=== PATIENT | female | born 1990 | race Caucasian/White ===

== ENCOUNTER 2019-05-17 01:23 | Emergency (ER) | payer SELFPAY ==
--- NOTE | 2019-05-17 03:20 | ER Document Report ---
ED Medical Screen (RME) - General Chief Complaint: Chest Pain Stated Complaint: TROUBLE BREATHING Time Seen by Provider: 05/17/19 03:18 Notes: 29-year-old female with chief complaint of an episode that happened a few hours ago where she felt tightening in her chest, difficulty breathing, palpitations, and lightheadedness like she was going to pass out. She states that she started feeling improved, took some Dramamine, now she just feels slightly "off". She denies current pain or difficulty breathing. She denies smoking, alcohol, recreational drugs, or daily medications. She does report history of anemia requiring transfusions. TRAVEL OUTSIDE OF THE [place] IN LAST 30 DAYS: No - Related Data Allergies/Adverse Reactions: No Known Allergies Allergy (Unverified 05/17/19 01:26) Physical Exam - General General appearance: Appears well In distress: None - Cardiovascular Rhythm: Regular. No: Tachycardia Heart sounds: Normal auscultation, S1 appreciated, S2 appreciated Course - Re-evaluation Re-evalutation: I have greeted and performed a rapid initial assessment of this patient. A comprehensive ED assessment and evaluation of the patient, analysis of test results and completion of the medical decision making process will be conducted by additional ED providers.
[2019-05-17 03:46] LABS: ABSOLUTE EOSINOPHILS # (AUTO) 0.1 10^3/uL (0.0-0.6); ABSOLUTE LYMPHOCYTES (AUTO) 2.8 10^3/uL (0.5-4.7); ABSOLUTE MONOCYTES (AUTO) 0.7 10^3/uL (0.1-1.4); ABSOLUTE NEUT (AUTO) 3.5 10^3/uL (1.7-8.2); BASOPHILS % (AUTO) 0.1 % (0-2); EOSINOPHILS % (AUTO) 1.4 % (0-6); HEMATOCRIT 35.1 % (36.0-47.0); HEMOGLOBIN 11.8 g/dL (12.0-15.5); LYMPHOCYTES % (AUTO) 38.8 % (13-45); MEAN CORPUSCULAR HEMOGLOBIN 29.6 pg (27.0-33.4); MEAN CORPUSCULAR HGB CONC 33.6 g/dL (32.0-36.0); MEAN CORPUSCULAR VOLUME 88 fl (80-97); MONOCYTES % (AUTO) 10.4 % (3-13); PLATELET COUNT 168 10^3/uL (150-450); RED BLOOD COUNT 3.99 10^6/uL (3.72-5.28); RED CELL DISTRIBUTION WIDTH 13.5 % (11.5-14.0); SEGMENTED NEUTROPHILS % (AUTO) 49.3 % (42-78); TOTAL CELLS COUNTED % (AUTO) 100 %; WHITE BLOOD COUNT 7.1 10^3/uL (4.0-10.5)
[2019-05-17 04:16] LABS: ALANINE AMINOTRANSFERASE 29 U/L (9-52); ALBUMIN 4.5 g/dL (3.5-5.0); ALKALINE PHOSPHATASE 54 U/L (38-126); ANION GAP 7 (5-19); ASPARTATE AMINO TRANSFERASE 56 U/L (14-36); BILIRUBIN,DIRECT 0.2 mg/dL (0.0-0.4); BILIRUBIN,TOTAL 0.2 mg/dL (0.2-1.3); BLOOD UREA NITROGEN 15 mg/dL (7-20); CALCIUM 9.6 mg/dL (8.4-10.2); CARBON DIOXIDE 29 mmol/L (22-30); CHLORIDE 104 mmol/L (98-107); GLUCOSE 95 mg/dL (75-110); SODIUM 140.3 mmol/L (137-145); TOTAL PROTEIN 7.2 g/dL (6.3-8.2)
--- NOTE | 2019-05-17 04:24 | RADIOLOGY REPORT (SQ) ---
Chest single view on 05/17/2019 at 3:57 AM CLINICAL INDICATION: Chest pain COMPARISON: None FINDINGS: The lungs are clear. Portion of a necklace is noted overlying the midline neck that is likely outside the patient. Cardiac, hilar and mediastinal contours are within normal limits. Pulmonary vascularity is within normal limits. No bony abnormality is noted. IMPRESSION: No active disease.
[2019-05-17 04:33] LABS: FREE T4 (FREE THYROXINE) 0.82 ng/dL (0.78-2.19)
[2019-05-17 04:47] LABS: THYROID STIMULATING HORMONE 2.91 uIU/mL (0.47-4.68)
--- NOTE | 2019-05-19 00:24 | EKG REPORT ---
SEVERITY:- NORMAL ECG - SINUS RHYTHM : Confirmed by: Tasha Holland 19-May-2019 00:24:02
== END 2019-05-17 05:45 | disposition left against medical advice (07) ==
LOC: ER 01:23
DX: R07.9 Chest pain, unspecified (principal); R06.00 Dyspnea, unspecified; R00.2 Palpitations; R42 Dizziness and giddiness; D64.9 Anemia, unspecified
CPT/HCPCS: 36415; 71045; 80053; 84439; 84443; 84484; 84703; 85025; 93005; 93010

== ENCOUNTER 2019-07-12 08:01 | Emergency (ER) | payer SELFPAY ==
[2019-07-12] MEDS ORDERED: ONDANSETRON 4 MG TAB.RAPDIS PO ONE (08:27)
[2019-07-12] MEDS ORDERED: MAG HYDROX/AL HYDROX/SIMETH SUSP 30 ML UDCUP PO ONE (08:33)
[2019-07-12] MEDS ORDERED: METOCLOPRAMIDE HCL ORAL SOLN 10 MG/10 ML UDCUP PO ONE (08:33)
[2019-07-12] MEDS ORDERED: LIDOCAINE 2% VISCOUS SOLN 20 ML UDCUP PO ONE (08:33)
--- NOTE | 2019-07-12 08:35 | ER Document Report ---
ED General - General Chief Complaint: Nausea/Vomiting/Diarrhea Stated Complaint: ABDOMINAL PAIN,DIARRHEA Time Seen by Provider: 07/12/19 08:26 TRAVEL OUTSIDE OF THE [place] IN LAST 30 DAYS: No - HPI Notes: Presents with 2 days of intermittent nausea vomiting diarrhea and epigastric discomfort after eating at [employer]. Patient says her gallbladder. She states she is a little over the last 2 days results this. No recent travel out of the country no camping. No known medical problems does not take any medications on a daily basis - Related Data Allergies/Adverse Reactions: No Known Allergies Allergy (Verified 07/12/19 08:02) Past Medical History - Social History Smoking Status: Unknown if Ever Smoked Family History: Reviewed & Not Pertinent Renal/ Medical History: Denies: Hx Peritoneal Dialysis Review of Systems - Review of Systems Constitutional: No symptoms reported EENT: No symptoms reported Cardiovascular: No symptoms reported Respiratory: No symptoms reported Gastrointestinal: See HPI Genitourinary: No symptoms reported Female Genitourinary: No symptoms reported Musculoskeletal: No symptoms reported Skin: No symptoms reported Hematologic/Lymphatic: No symptoms reported Neurological/Psychological: No symptoms reported Physical Exam - Vital signs Vitals: Temp Pulse Resp BP Pulse Ox 98.2 F 81 16 121/64 97 07/12/19 08:05 07/12/19 08:05 07/12/19 08:05 07/12/19 08:05 07/12/19 08:05 - General General appearance: Appears well, Alert - HEENT Head: Normocephalic, Atraumatic - Respiratory Respiratory status: No respiratory distress Chest status: Nontender Breath sounds: Normal - Cardiovascular Rhythm: Regular, Other - Abdominal Inspection: Normal Distension: No distension Bowel sounds: Normal Tenderness: Other - Mild tenderness palpation in epigastric and right upper quadrant - Back Back: Normal - Neurological Neuro grossly intact: Yes Course - Re-evaluation Re-evalutation: 07/12/19 10:29 No concerning findings on gallbladder ultrasound labs within normal limits are nonsignificant. Patient will be discharged at this time with antinausea medications. Return precautions provided - Vital Signs Vital signs: Temp Pulse Resp BP Pulse Ox 97.9 F 81 16 117/66 96 07/12/19 11:19 07/12/19 11:19 07/12/19 11:19 07/12/19 11:19 08/23/19 11:19 - Laboratory Result Diagrams: 07/12/19 08:46 07/12/19 08:46 Laboratory results interpreted by me: 07/12/19 07/12/19 07/12/19 08:34 08:46 08:46 Hgb 11.0 L Hct 33.3 L RDW 14.4 H Glenn % (Auto) 13.1 H Total Bilirubin 0.1 L Ur Leukocyte Esterase SMALL H Discharge - Discharge Clinical Impression: Nausea vomiting and diarrhea, Epigastric discomfort Condition: Good Disposition: HOME, SELF-CARE Instructions: Antinausea Medication ([facility]), Diarrhea, Nonspecific ([facility]), Vomiting ([facility]) Prescriptions: Ondansetron [Zofran Odt 4 mg Tablet] 1 tab PO Q4H PRN #15 tab.rapdis PRN Reason: For Nausea/Vomiting
[2019-07-12 08:55] LABS: ABSOLUTE EOSINOPHILS # (AUTO) 0.1 10^3/uL (0.0-0.6); ABSOLUTE LYMPHOCYTES (AUTO) 1.8 10^3/uL (0.5-4.7); ABSOLUTE MONOCYTES (AUTO) 0.9 10^3/uL (0.1-1.4); BASOPHILS % (AUTO) 0.2 % (0-2); EOSINOPHILS % (AUTO) 1.5 % (0-6); HEMATOCRIT 33.3 % (36.0-47.0); LYMPHOCYTES % (AUTO) 26.3 % (13-45); MEAN CORPUSCULAR HEMOGLOBIN 29.2 pg (27.0-33.4); MEAN CORPUSCULAR HGB CONC 33.2 g/dL (32.0-36.0); MEAN CORPUSCULAR VOLUME 88 fl (80-97); MONOCYTES % (AUTO) 13.1 % (3-13); PLATELET COUNT 170 10^3/uL (150-450); RED BLOOD COUNT 3.77 10^6/uL (3.72-5.28); RED CELL DISTRIBUTION WIDTH 14.4 % (11.5-14.0); SEGMENTED NEUTROPHILS % (AUTO) 58.9 % (42-78); TOTAL CELLS COUNTED % (AUTO) 100 %; WHITE BLOOD COUNT 6.8 10^3/uL (4.0-10.5)
[2019-07-12 09:03] LABS: APPEARANCE,URINE CLEAR; BILIRUBIN,URINE NEGATIVE (NEGATIVE); COLOR,URINE YELLOW; GLUCOSE, URINE NEGATIVE (NEGATIVE); KETONES,URINE NEGATIVE (NEGATIVE); LEUKOCYTE ESTERASE,URINE SMALL (NEGATIVE); NITRITE,URINE NEGATIVE (NEGATIVE); PROTEIN,URINE NEGATIVE (NEGATIVE); URINE SPECIFIC GRAVITY 1.016; UROBILINOGEN,URINE NEGATIVE mg/dL (<2.0)
[2019-07-12 09:12] LABS: ALBUMIN 4.3 g/dL (3.5-5.0); ALKALINE PHOSPHATASE 60 U/L (38-126); ANION GAP 11 (5-19); ASPARTATE AMINO TRANSFERASE 25 U/L (14-36); BILIRUBIN,DIRECT 0.1 mg/dL (0.0-0.4); BILIRUBIN,TOTAL 0.1 mg/dL (0.2-1.3); BLOOD UREA NITROGEN 11 mg/dL (7-20); CALCIUM 9.4 mg/dL (8.4-10.2); CARBON DIOXIDE 26 mmol/L (22-30); CHLORIDE 102 mmol/L (98-107); GLUCOSE 86 mg/dL (75-110); TOTAL PROTEIN 6.8 g/dL (6.3-8.2)
--- NOTE | 2019-07-12 09:39 | RADIOLOGY REPORT (SQ) ---
EXAM DESCRIPTION: U/S ABDOMEN LIMITED W/O DOP COMPLETED DATE/TIME: 07/12/2019 9:28 am REASON FOR STUDY: epigastric pain COMPARISON: None. TECHNIQUE: Dynamic and static grayscale images acquired of the abdomen and recorded on PACS. Additio nal selected color Doppler and spectral images recorded. LIMITATIONS: None. FINDINGS: PANCREAS: Visualized portions the pancreas are normal in appearance. LIVER: Normal size Echo texture normal. No focal masses. LIVER VASCULATURE: Normal directional flow of the main portal vein and hepatic veins. GALLBLADDER: Gallbladder is contracted. No stones. No wall thickening. ULTRASOUND-DETECTED MUHAMMAD'S SIGN: Positive. INTRAHEPATIC DUCTS AND COMMON DUCT: CBD and intrahepatic ducts normal caliber. No filling defects. INFERIOR VENA CAVA: Normal flow. AORTA: No aneurysm. RIGHT KIDNEY: Normal size. Normal echogenicity. No solid or suspicious masses. No hydronephros is. No calcifications. PERITONEAL AND RIGHT PLEURAL SPACE: No ascites or effusions. OTHER: No other significant findings. IMPRESSION: Positive sonographic Muhammad's sign otherwise negative examination. TECHNICAL DOCUMENTATION: JOB ID: [id number]- All Rights Reserved Reading location - IP/workstation name: [email or web address]
[2019-07-12] MEDS ORDERED: DICYCLOMINE HCL 20 MG TABLET PO ONE (09:52)
[2019-07-12 11:20] VITALS: BP 117/66
== END 2019-07-12 11:20 | disposition home or self-care (01) ==
LOC: ER 08:01
DX: R11.2 Nausea with vomiting, unspecified (principal); R19.7 Diarrhea, unspecified; R10.13 Epigastric pain
CPT/HCPCS: 99284; 36415; 83690; 83735; 85025; 81025; 80053; 81001; 76705; J3490 ×2

== ENCOUNTER 2019-10-29 23:14 | Emergency (ER) | payer SELFPAY ==
[2019-10-29] MEDS ORDERED: ONDANSETRON 4 MG TAB.RAPDIS PO ONE (23:29)
[2019-10-29] MEDS ORDERED: IBUPROFEN 800 MG TABLET PO ONE (23:29)
--- NOTE | 2019-10-29 23:31 | ER Document Report ---
ED Medical Screen (RME) - General Chief Complaint: Knee Pain Stated Complaint: FALL KNEE PAIN Time Seen by Provider: 10/29/19 23:27 Mode of Arrival: Ambulatory Information source: Patient Notes: 29-year-old female presents emergency department with complaints of left knee pain. Reports she twisted her knee this morning felt a pop. She has been able to ambulate but reports pain and has been vomiting from the pain. Patient reports she did take 400 mg of Motrin without relief of pain. I have greeted and performed a rapid initial assessment of this patient. A comprehensive ED assessment and evaluation of the patient, analysis of test results and completion of the medical decision making process will be conducted by additional ED providers. Dictation of this chart was performed using voice recognition software; therefore, there may be some unintended grammatical errors. TRAVEL OUTSIDE OF THE [place] IN LAST 30 DAYS: No - Related Data Allergies/Adverse Reactions: No Known Allergies Allergy (Verified 07/12/19 08:02) Past Medical History Renal/ Medical History: Denies: Hx Peritoneal Dialysis Physical Exam - Vital signs Vitals: Temp Pulse Resp BP Pulse Ox 99.2 F 105 H 16 132/82 H 100 10/29/19 23:27 10/29/19 23:27 10/29/19 23:27 10/29/19 23:27 10/29/19 23:27 Course - Vital Signs Vital signs: Temp Pulse Resp BP Pulse Ox 99.2 F 105 H 16 132/82 H 100 10/29/19 23:27 10/29/19 23:27 10/29/19 23:27 10/29/19 23:27 10/29/19 23:27
--- NOTE | 2019-10-30 00:21 | RADIOLOGY REPORT (SQ) ---
EXAM DESCRIPTION: Left knee RadLex: XR KNEE 4 OR MORE VIEWS Views: 4 CLINICAL HISTORY: 29 years Female, pain, twisted knee felt pop COMPARISON: None. FINDINGS: Negative for acute fracture, dislocation, or radiopaque foreign body. No joint effusion. No focal cortical defects. IMPRESSION: 1. No acute findings.
[2019-10-30 01:45] VITALS: BP 111/65
[2019-10-30] MEDS ORDERED: OXYCODONE-ACETAMINOPHEN 5-325 MG TABLET PO ONE (03:06)
[2019-10-30] MEDS ORDERED: ONDANSETRON 4 MG TAB.RAPDIS PO ONE (03:06)
--- NOTE | 2019-10-30 03:06 | ER Document Report ---
HPI - HPI Time Seen by Provider: 10/29/19 23:27 Pain Level: 5 Context: Patient is a 29-year-old female that comes to the emergency department for chief complaint of left knee pain. She states this morning she was moving furniture, twisted to the side, lost her balance, felt a pop in her knee. She states now it pops frequently and hurts to walk on. She denies swelling, she denies hip, ankle, or back pain. She denies any other injuries. She denies any daily medi cations. LMP within the past month. - REPRODUCTIVE Reproductive: DENIES: : Past Medical History - General Information source: Patient - Social History Smoking Status: Never Smoker Frequency of alcohol use: None Drug Abuse: None Lives with: Family Family History: Reviewed & Not Pertinent Patient has suicidal ideation: No Patient has homicidal ideation: No Renal/ Medical History: Denies: Hx Peritoneal Dialysis Surgical Hx: Negative - Immunizations Immunizations up to date: Yes Hx Diphtheria, Pertussis, Tetanus Vaccination: Yes Vertical Provider Document - CONSTITUTIONAL General Appearance: WD/WN, No Apparent Distress - INFECTION CONTROL TRAVEL OUTSIDE OF THE [place] IN LAST 30 DAYS: No - HEENT HEENT: Atraumatic, Normocephalic - NECK Neck: Normal Inspection - RESPIRATORY Respiratory: Breath Sounds Normal, No Respiratory Distress - CARDIOVASCULAR Cardiovascular: Regular Rate, Regular Rhythm - GI/ABDOMEN Gastrointestinal: Abdomen Soft, Abdomen Non-Tender - BACK Back: Normal Inspection - MUSCULOSKELETAL/EXTREMETIES Musculoskeletal/Extremeties: MAEW, FROM, Tender - There is some mild tenderness over the left medial anterior knee, no noted soft tissue swelling, pain with range of motion of the knee but range of motion is present. She can ambulate on the knee but she complains of doing so. Normal distal neurovascular exam, normal hip exam. Positive Romie's test with some popping - NEURO Level of Consciousness: Awake, Alert, Appropriate Motor/Sensory: No Motor Deficit, No Sensory Deficit - DERM Integumentary: Warm, Dry, No Rash Course - Re-evaluation Re-evalutation: X-ray negative, exam consistent with meniscus injury, no concerning findings or compartment syndrome. Placed in knee immobilizer, discussed expectations, follow-up, return precautions. Patient states understanding and agreement - Vital Signs Vital signs: Temp Pulse Resp BP Pulse Ox 98.1 F 86 16 111/65 100 10/30/19 01:45 10/30/19 01:45 10/30/19 01:45 10/30/19 01:45 10/30/19 01:45 Procedures - Immobilization Left knee Pre-Proc Neuro Vasc Exam: Normal Immobilizer type: Knee immobilizer Performed by: RN Post-Proc Neuro Vasc Exam: Normal Alignment checked and good: Yes Discharge - Discharge Clinical Impression: Left knee pain Qualifiers: Chronicity: acute Qualified Code(s): M25.562 - Pain in left knee Condition: Stable Disposition: HOME, SELF-CARE Additional Instructions: Your x-ray is negative for fracture or concerning finding, your examination is very consistent with a torn meniscus. Recommendation is to wear the knee immobilizer, use the crutches, elevate, ice 3-4 times a day, take the anti- inflammatory. Symptoms should gradually improve over the next several days. If symptoms resolve resume normal activity. If symptoms continue follow-up with orthopedics for additional management. Return for any concerning symptoms including severe swelling or pain. Prescriptions: Naproxen 500 mg PO BID PRN #14 tablet PRN Reason: Referrals: MARGIE BUCKNER MD [ACTIVE STAFF] - Follow up as needed
== END 2019-10-30 01:45 | disposition home or self-care (01) ==
LOC: ER 23:14
DX: M25.562 Pain in left knee (principal)
CPT/HCPCS: 99283; 73564; L1830; S0119 ×2

== ENCOUNTER 2019-11-08 22:47 | Emergency (ER) | payer SELFPAY ==
--- NOTE | 2019-11-08 23:18 | ER Document Report ---
ED Medical Screen (RME) - General Chief Complaint: Vaginal Bleeding Stated Complaint: AND BLEEDING Time Seen by Provider: 11/08/19 23:10 TRAVEL OUTSIDE OF THE [place] IN LAST 30 DAYS: No - HPI Notes: 11/08/19 23:16 29-year-old female to the emergency department with complaints of vaginal bleeding that began this morning and is gotten significantly worse this afternoon. She states that she is a G4, P3. She states that she is about 6 weeks . She has had confirmed with urinalysis but she has not yet had an ultrasound. She denies any fevers or chills. She denies any nausea or vomiting. She denies any passing out chest pain or shortness of breath. I performed a brief medical screening exam on the patient and determined she will need further evaluation by main side provider. I have placed initial orders to help expedite in her care this evening. - Related Data Allergies/Adverse Reactions: No Known Allergies Allergy (Verified 07/12/19 08:02) Past Medical History Renal/ Medical History: Denies: Hx Peritoneal Dialysis - Immunizations Immunizations up to date: Yes Hx Diphtheria, Pertussis, Tetanus Vaccination: Yes Physical Exam - Vital signs Vitals: Temp Pulse Resp BP Pulse Ox 97.5 F 102 H 16 133/73 H 98 11/08/19 22:58 11/08/19 22:58 11/08/19 22:58 11/08/19 22:58 11/08/19 22:58 Course - Vital Signs Vital signs: Temp Pulse Resp BP Pulse Ox 97.5 F 102 H 16 133/73 H 98 11/08/19 23:09 11/08/19 23:09 11/08/19 23:09 11/08/19 23:09 11/08/19 23:09
[2019-11-08 23:55] LABS: ABSOLUTE EOSINOPHILS # (AUTO) 0.1 10^3/uL (0.0-0.6); ABSOLUTE LYMPHOCYTES (AUTO) 2.4 10^3/uL (0.5-4.7); ABSOLUTE MONOCYTES (AUTO) 0.7 10^3/uL (0.1-1.4); ABSOLUTE NEUT (AUTO) 5.9 10^3/uL (1.7-8.2); BASOPHILS % (AUTO) 0.2 % (0-2); EOSINOPHILS % (AUTO) 0.7 % (0-6); HEMATOCRIT 32.2 % (36.0-47.0); HEMOGLOBIN 10.8 g/dL (12.0-15.5); LYMPHOCYTES % (AUTO) 26.7 % (13-45); MEAN CORPUSCULAR HEMOGLOBIN 30.1 pg (27.0-33.4); MEAN CORPUSCULAR HGB CONC 33.6 g/dL (32.0-36.0); MEAN CORPUSCULAR VOLUME 90 fl (80-97); MONOCYTES % (AUTO) 7.9 % (3-13); PLATELET COUNT 185 10^3/uL (150-450); RED CELL DISTRIBUTION WIDTH 13.8 % (11.5-14.0); SEGMENTED NEUTROPHILS % (AUTO) 64.5 % (42-78); TOTAL CELLS COUNTED % (AUTO) 100 %; WHITE BLOOD COUNT 9.1 10^3/uL (4.0-10.5)
[2019-11-08 23:56] LABS: APPEARANCE,URINE CLOUDY; BILIRUBIN,URINE NEGATIVE (NEGATIVE); COLOR,URINE RED; GLUCOSE, URINE NEGATIVE (NEGATIVE); KETONES,URINE NEGATIVE (NEGATIVE); PROTEIN,URINE 100 mg/dL (NEGATIVE); URINE SPECIFIC GRAVITY 1.028; UROBILINOGEN,URINE NEGATIVE mg/dL (<2.0)
[2019-11-09 00:23] LABS: ANION GAP 10 (5-19); BLOOD UREA NITROGEN 15 mg/dL (7-20); CALCIUM 9.3 mg/dL (8.4-10.2); CARBON DIOXIDE 25 mmol/L (22-30); CHLORIDE 104 mmol/L (98-107); GLUCOSE 112 mg/dL (75-110); POTASSIUM 3.6 mmol/L (3.6-5.0)
--- NOTE | 2019-11-09 02:08 | RADIOLOGY REPORT (SQ) ---
Ultrasound OB transvaginal on 11/09/2019 at 1:22 AM CLINICAL INDICATION: Vaginal bleeding, COMPARISON: None FINDINGS: Multiple sonographic images are obtained throughout the pelvis by transvaginal approach, both transverse and sagittal images are obtained. Uterus measures approximately 9.5 x 4.9 x 6.1 cm. Small amount of free fluid is noted in the pelvis. Left ovary measures approximately 2.9 x 1.4 x 2.5 cm. Flow is demonstrated in the left ovary. The right ovary measures approximately 3.2 x 2.5 x 2.8 cm. Within the right ovary there is a small 1.4 x 1.4 x 1.3 cm simple dominant follicle which should be considered benign with no follow-up recommended. Flow is demonstrated in the right ovary. Endometrium is prominent with likely pseudogestational sac with fluid within the endometrium. No definite intrauterine is identified. This needs correlation with the patient's beta hCG level. IMPRESSION: No definite intrauterine identified with a likely pseudogestational sac in the endometrium. If the patient's beta-hCG is greater than 1000 then an intrauterine should have been identified and findings could be related to completed or ectopic that is not visualized. If the patient's beta-hCG is less than 1000 then an intrauterine would not have to be identified and the findings maybe related to an early intrauterine or early ectopic that is not visualized. Recommend clinical followup.
[2019-11-09] MEDS ORDERED: ACETAMINOPHEN 325 MG TABLET PO ONE (02:54)
[2019-11-09] MEDS ORDERED: ONDANSETRON ODT 4 MG TAB (6 TAB/ER DISP) PO PRN (02:54)
--- NOTE | 2019-11-09 02:57 | ER Document Report ---
ED GI/ - General Chief Complaint: Vaginal Bleeding Stated Complaint: AND BLEEDING Time Seen by Provider: 11/08/19 23:10 Notes: Patient is a 29-year-old female that comes emergency department for chief complaint of vaginal spotting that started last night. She denies any current abdominal pain, she denies any current symptoms. She denies fever. She states she has been getting nauseated frequently as well. She had a positive test with confirmation at the health department. She has a follow-up [facility] appointment set up already. She denies any daily medications or diagnosed medical history. TRAVEL OUTSIDE OF THE [place] IN LAST 30 DAYS: No - Related Data Allergies/Adverse Reactions: No Known Allergies Allergy (Verified 07/12/19 08:02) Past Medical History - General Information source: Patient - Social History Smoking Status: Never Smoker Frequency of alcohol use: None Drug Abuse: None Lives with: Family Family History: Reviewed & Not Pertinent Patient has suicidal ideation: No Patient has homicidal ideation: No - Medical History Medical History: Negative Renal/ Medical History: Denies: Hx Peritoneal Dialysis Surgical Hx: Negative - Immunizations Immunizations up to date: Yes Hx Diphtheria, Pertussis, Tetanus Vaccination: Yes Review of Systems - Review of Systems Constitutional: No symptoms reported EENT: No symptoms reported Cardiovascular: No symptoms reported Respiratory: No symptoms reported Gastrointestinal: No symptoms reported Genitourinary: No symptoms reported Female Genitourinary: See HPI Musculoskeletal: No symptoms reported Skin: No symptoms reported Hematologic/Lymphatic: No symptoms reported Neurological/Psychological: No symptoms reported Physical Exam - Vital signs Vitals: Temp Pulse Resp BP Pulse Ox 97.5 F 102 H 16 133/73 H 98 11/08/19 22:58 11/08/19 22:58 11/08/19 22:58 11/08/19 22:58 11/08/19 22:58 - Notes Notes: GENERAL: Alert, interacts well. No acute distress. HEAD: Normocephalic, atraumatic. EYES: Pupils equal, round, and reactive to light. Extraocular movements intact. ENT: Oral mucosa moist, tongue midline. Oropharynx unremarkable. Airway patent. NECK: Full range of motion. Supple. Trachea midline. LUNGS: Clear to auscultation bilaterally, no wheezes, rales, or rhonchi. No respiratory distress. HEART: Regular rate and rhythm. No murmur ABDOMEN: Soft, non-tender. Non-distended. EXTREMITIES: Moves all 4 extremities spontaneously. No edema, normal radial and dorsalis pedis pulses bilaterally. No cyanosis. BACK: no cervical, thoracic, lumbar midline tenderness. No saddle anesthesia, normal distal neurovascular exam. Moves all extremities in full range of motion. NEUROLOGICAL: Alert and oriented x3. Normal speech. Cranial nerves II through XII grossly intact. PSYCH: Normal affect, normal mood. SKIN: Warm, dry, normal turgor. No rashes or lesions noted. Course - Re-evaluation Re-evalutation: Patient with a nontender abdomen. No current complaints. CBC nonspecific with mild anemia. hCG is only in the 300s. Ultrasound from triage shows no concerning findings but also shows no intrauterine , this is consistent with her low hCG, overall presentation is consistent with spotting in early intrauterine with uncertain location. RhoGam is not indicated. I discussed all details at length with patient, discussed recommendations, fol low-up, return precautions. Patient states that she will try to follow-up with [facility] and return here otherwise for additional trending. 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 No current complaints, stable at time of discharge. - Vital Signs Vital signs: Temp Pulse Resp BP Pulse Ox 98.2 F 89 16 128/73 H 98 11/09/19 03:00 11/09/19 03:00 11/09/19 03:00 11/09/19 03:00 11/09/19 03:00 - Laboratory Result Diagrams: 11/08/19 23:45 11/08/19 23:45 Laboratory results interpreted by me: 11/08/19 11/08/19 11/08/19 22:53 23:45 23:45 RBC 3.60 L Hgb 10.8 L Hct 32.2 L Glucose 112 H Beta HCG, Quant 347.80 H Urine Protein 100 H Urine Blood LARGE H Leukocyte Esterase Rfl TRACE H Discharge - Discharge Clinical Impression: Vaginal spotting, Positive test Condition: Stable Disposition: HOME, SELF-CARE Additional Instructions: Your hormone is still low indicating an early , as result we cannot see the in the uterus yet. This still could be a normally developing , however this is not certain at this time. I recommend a follow-up hCG ( hormone) test in 3 days to help trend this. See OB referral. Recommend pelvic rest as well, avoid heavy lifting, intense exercise, or sexual intercourse for the next couple days or cleared by [facility]INE [facility]PER[facility]. Return for any concerning symptoms including severe pain, heavy bleeding, passing out, or any other concerning or worsening symptoms. Prescriptions: Metoclopramide HCl [Reglan] 5 mg PO ASDIR PRN #30 tablet PRN Reason:
[2019-11-09 04:08] VITALS: BP 128/73
== END 2019-11-09 03:00 | disposition home or self-care (01) ==
LOC: ER 22:47
DX: O26.859 Spotting complicating pregnancy, unspecified trimester (principal); O26.899 Other specified pregnancy related conditions, unspecified trimester; R11.0 Nausea; O99.019 Anemia complicating pregnancy, unspecified trimester; D64.9 Anemia, unspecified; Z3A.00 Weeks of gestation of pregnancy not specified
CPT/HCPCS: 36415; 76817; 80048; 81001; 84702; 85025; 86900; 86901; 87086; 99284

== ENCOUNTER 2019-11-11 16:31 | Emergency (ER) | payer SELFPAY ==
--- NOTE | 2019-11-11 17:17 | ER Document Report ---
ED Medical Screen (RME) - General Chief Complaint: Vag Bleeding, +preg <12wks Stated Complaint: VAGINAL BLEEDING Time Seen by Provider: 11/11/19 17:05 Notes: 29-year-old G4, P3 female presents to the emergency department for vaginal bleeding. She was seen here 3 days ago and hCG quant of 300s and 57 with an ultrasound that showed a pseudo-gestational sac with no definitive IUP at this time. Patient states that the bleeding had subsided and then this morning started having heavier bleeding that was red and now it is dark in color. Denies clots. Does complain of some lower abdominal pain but is unclear if it is cramping versus gas. Exam: Well-appearing in no acute distress, abdominal exam deferred in triage. Lungs are clear to auscultation all davis I have greeted and performed a rapid initial assessment of this patient. A comprehensive ED assessment and evaluation of the patient, analysis of test results and completion of medical decision making process will be conducted by an additional ED providers. TRAVEL OUTSIDE OF THE [place] IN LAST 30 DAYS: No - Related Data Allergies/Adverse Reactions: No Known Allergies Allergy (Verified 11/11/19 17:05) Past Medical History Renal/ Medical History: Denies: Hx Peritoneal Dialysis - Immunizations Immunizations up to date: Yes Hx Diphtheria, Pertussis, Tetanus Vaccination: Yes Physical Exam - Vital signs Vitals: Temp Pulse Resp BP Pulse Ox 98.0 F 78 16 126/63 H 97 11/11/19 16:34 11/11/19 16:34 11/11/19 16:34 11/11/19 16:34 11/11/19 16:34 Course - Vital Signs Vital signs: Temp Pulse Resp BP Pulse Ox 98.0 F 78 16 126/63 H 97 11/11/19 16:34 11/11/19 16:34 11/11/19 16:34 11/11/19 16:34 11/11/19 16:34
[2019-11-11 17:46] LABS: ABSOLUTE EOSINOPHILS # (AUTO) 0.1 10^3/uL (0.0-0.6); ABSOLUTE MONOCYTES (AUTO) 0.6 10^3/uL (0.1-1.4); ABSOLUTE NEUT (AUTO) 4.7 10^3/uL (1.7-8.2); EOSINOPHILS % (AUTO) 0.9 % (0-6); HEMATOCRIT 32.9 % (36.0-47.0); LYMPHOCYTES % (AUTO) 26.9 % (13-45); MEAN CORPUSCULAR HEMOGLOBIN 30.1 pg (27.0-33.4); MEAN CORPUSCULAR HGB CONC 33.4 g/dL (32.0-36.0); MEAN CORPUSCULAR VOLUME 90 fl (80-97); MONOCYTES % (AUTO) 8.4 % (3-13); PLATELET COUNT 193 10^3/uL (150-450); RED BLOOD COUNT 3.65 10^6/uL (3.72-5.28); RED CELL DISTRIBUTION WIDTH 14.2 % (11.5-14.0); SEGMENTED NEUTROPHILS % (AUTO) 63.8 % (42-78); TOTAL CELLS COUNTED % (AUTO) 100 %; WHITE BLOOD COUNT 7.3 10^3/uL (4.0-10.5)
[2019-11-11] MEDS ORDERED: ACETAMINOPHEN 325 MG TABLET PO ONE (18:37)
[2019-11-11] MEDS ORDERED: SIMETHICONE 80 MG TAB.CHEW PO ONE (18:38)
--- NOTE | 2019-11-11 18:47 | RADIOLOGY REPORT (SQ) ---
EXAM DESCRIPTION: U/S OB TRANSVAG W/DOPPLER COMPLETED DATE/TIME: 11/11/2019 6:24 pm REASON FOR STUDY: increase vag bleed + preg COMPARISON: None. TECHNIQUE: Transvaginal static and realtime grayscale images acquired of the pelvis. Additional antonia cted spectral and color Doppler images recorded. All images stored on PACs. bHCG: Pending. Was 348 on 11/09/2019. CLINICAL DATES: 10/02/2019 LMP. 5 weeks 5 days. LIMITATIONS: None. FINDINGS: There is an irregular endometrial fluid collection. No pole is seen. Complex fluid . UTERUS: No masses. No anomalies. CERVICAL LENGTH: 2.9 cm. Closed. RIGHT ADNEXA: Normal ovary with normal vascular flow. There is an irregular area of mixed echogenici ty associated with the right ovary. No adnexal free fluid. No adnexal masses. LEFT ADNEXA: Normal ovary with normal vascular flow. No adnexal free fluid. No adnexal masses. FREE FLUID: None. OTHER: No other significant finding. IMPRESSION: There is an irregular endometrial fluid collection that does not have an appearance of a normal gestational sac. This is suggestive of a miscarriage in progress. Possible collapsed right ovarian cyst or corpus luteum. Follow-up as clinically indicated. TECHNICAL DOCUMENTATION: JOB ID: [id number]- All Rights Reserved rev Reading location - IP/workstation name: [email or web address]
--- NOTE | 2019-11-11 18:49 | ER Document Report ---
ED General - General Chief Complaint: Vag Bleeding, +preg <12wks Stated Complaint: VAGINAL BLEEDING Time Seen by Provider: 11/11/19 17:05 Notes: G5, P3 approximately 6-week female presents with continued vaginal bleeding/abdominal cramping. Patient has been having vaginal bleeding and abdominal cramping for 3 days. Patient was seen here on 11/09 and had work-up including ultrasound. Her beta hCG on that day was 347.80 and her ultrasound showed no definitive IUP with a pseudo-gestational sac which was most likely early IUP or an early ectopic . Patient states she had worsening bleeding today. Patient is also complaining of "gas pain." Patient's blood type is O+ which was reported in this ER on 11/09 so does not require RhoGam. TRAVEL OUTSIDE OF THE [place] IN LAST 30 DAYS: No - Related Data Allergies/Adverse Reactions: No Known Allergies Allergy (Verified 11/11/19 17:05) Past Medical History - Social History Smoking Status: Former Smoker Family History: Reviewed & Not Pertinent Patient has suicidal ideation: No Patient has homicidal ideation: No Renal/ Medical History: Denies: Hx Peritoneal Dialysis - Immunizations Immunizations up to date: Yes Hx Diphtheria, Pertussis, Tetanus Vaccination: Yes Review of Systems - Review of Systems Notes: Constitutional: Negative for fever. HENT: Negative for sore throat. Eyes: Negative for visual changes. Cardiovascular: Negative for chest pain. Respiratory: Negative for shortness of breath. Gastrointestinal: Positive for abdominal cramping. Negative for abdominal pain, vomiting or diarrhea. Genitourinary: Positive for vaginal bleeding. Negative for dysuria. Musculoskeletal: Negative for back pain. Skin: Negative for rash. Neurological: Negative for headaches, weakness or numbness. 10 point ROS negative except as marked above and in HPI. Physical Exam - Vital signs Vitals: Temp Pulse Resp BP Pulse Ox 98.0 F 78 16 126/63 H 97 11/11/19 16:34 11/11/19 16:34 11/11/19 16:34 11/11/19 16:34 11/11/19 16:34 - Notes Notes: GENERAL: Well-appearing, well-nourished and in no acute distress. HEAD: Atraumatic, normocephalic. EYES: Extraocular movements intact, sclera anicteric, conjunctiva are normal. NECK: Normal range of motion, supple without lymphadenopathy or JVD. ABDOMEN: Soft, nontender. No guarding, no rebound. No masses appreciated. PELVIC: Declined EXTREMITIES: Normal range of motion, no pitting or edema. No clubbing or cyanosis. NEUROLOGICAL: Cranial nerves II through XII grossly intact. Normal speech, normal gait. PSYCH: Normal mood, normal affect. SKIN: Warm, Dry, normal turgor, no rashes or lesions noted. Course - Re-evaluation Re-evalutation: 11/11/19 approx 6 week female presents for worsening vaginal bleeding. Abdomen soft nontender. PE is otherwise unremarkable. Patient was seen on 11/09 and had a beta-hCG of 347.80 and an ultrasound which showed no definitive IUP but did show a pseudo-gestational sac most likely consistent with early IUP or early ectopic . Patient states she had worsening bleeding today. Patient's blood type was recorded as O positive during visit on 11/09. Patient CBC is at baseline. Patient is not hypertensive. Patient's beta-hCG today is 468.17. Pending ultrasound results. 11/11/19 19:27 Pt's ultrasound results show miscarriage in progress. Discussed this with pt. 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 Pt voices understanding and agrees with plan of care. - Vital Signs Vital signs: Temp Pulse Resp BP Pulse Ox 98.0 F 78 16 126/63 H 97 11/11/19 16:34 11/11/19 16:34 11/11/19 16:34 11/11/19 16:34 11/11/19 16:34 - Laboratory Result Diagrams: 11/11/19 17:20 Laboratory results interpreted by me: 11/11/19 11/11/19 11/11/19 17:20 17:20 17:56 RBC 3.65 L Hgb 11.0 L Hct 32.9 L RDW 14.2 H Beta HCG, Quant 468.17 H Urine Protein 30 H Urine Blood LARGE H Discharge - Discharge Clinical Impression: Miscarriage Condition: Stable Disposition: HOME, SELF-CARE Instructions: Miscarriage ([facility]) Additional Instructions: Please follow-up with DIRECTOR DECISION SUPPORT listed in 2 to 3 days. Please return immediately to ER if you start having any worsening symptoms, including worsening pain, worsening vaginal bleeding, fever, abdominal pain, nausea/vomiting, chest pain, shortness of breath, or any other symptoms that are concerning to you. Referrals: SHRUTHI MITCHELL MD [ACTIVE PROVISIONAL STAFF] - Follow up in 3-5 days
[2019-11-11 19:04] LABS: AMORPHOUS SEDIMENT,URINE TRACE /HPF; APPEARANCE,URINE CLEAR; BILIRUBIN,URINE NEGATIVE (NEGATIVE); COLOR,URINE YELLOW; GLUCOSE, URINE NEGATIVE (NEGATIVE); KETONES,URINE NEGATIVE (NEGATIVE); LEUKOCYTE ESTERASE,URINE NEGATIVE (NEGATIVE); NITRITE,URINE NEGATIVE (NEGATIVE); PROTEIN,URINE 30 mg/dL (NEGATIVE); URINE SPECIFIC GRAVITY 1.023; UROBILINOGEN,URINE NEGATIVE mg/dL (<2.0)
[2019-11-11] MEDS ORDERED: HYDROCODONE/ACETAMINOPHEN 5-325 MG (6 TAB/ER DISP) PO PRN (19:29)
[2019-11-11 19:44] VITALS: BP 125/80
== END 2019-11-11 19:46 | disposition home or self-care (01) ==
LOC: ER 16:31
DX: O03.9 Complete or unspecified spontaneous abortion without complication (principal); O26.891 Other specified pregnancy related conditions, first trimester; R10.9 Unspecified abdominal pain; Z3A.01 Less than 8 weeks gestation of pregnancy; Z87.891 Personal history of nicotine dependence
CPT/HCPCS: 36415; 76817; 81001; 84702; 85025; 93976; 99284

== ENCOUNTER 2019-11-13 20:13 | Emergency (ER) | payer SELFPAY ==
--- NOTE | 2019-11-13 21:50 | ER Document Report ---
ED Medical Screen (RME) - General Chief Complaint: Vaginal Bleeding Stated Complaint: VAGINAL BLEEDING,NAUSEA,VOMITING Time Seen by Provider: 11/13/19 21:49 Notes: 29-year-old G4, P3 female presents to the emergency department for the third time in 5 days for vaginal spotting spotting. Patient is concerned and is doing extensive research after obtaining a report of her previous ultrasound and is questioning the results and is concerned she may have been given misinformation. No abdominal pain, no urinary symptoms, patient has light spotting it is persistent. Exam: Well-appearing in no acute distress, abdominal exam deferred in triage I have greeted and performed a rapid initial assessment of this patient. A comprehensive ED assessment and evaluation of the patient, analysis of test results and completion of medical decision making process will be conducted by an additional ED providers. - Related Data Allergies/Adverse Reactions: No Known Allergies Allergy (Verified 11/11/19 17:05) Past Medical History - Social History Frequency of alcohol use: None Renal/ Medical History: Denies: Hx Peritoneal Dialysis - Immunizations Immunizations up to date: Yes Hx Diphtheria, Pertussis, Tetanus Vaccination: Yes Physical Exam - Vital signs Vitals: Temp Pulse Resp BP Pulse Ox 98.7 F 93 16 123/68 96 11/13/19 20:36 11/13/19 20:36 11/13/19 20:36 11/13/19 20:36 11/13/19 20:36 Course - Vital Signs Vital signs: Temp Pulse Resp BP Pulse Ox 98.7 F 93 16 123/68 96 11/13/19 20:36 11/13/19 20:36 11/13/19 20:36 11/13/19 20:36 11/13/19 20:36
[2019-11-13 22:41] LABS: ABSOLUTE EOSINOPHILS # (AUTO) 0.1 10^3/uL (0.0-0.6); ABSOLUTE LYMPHOCYTES (AUTO) 2.3 10^3/uL (0.5-4.7); ABSOLUTE MONOCYTES (AUTO) 0.6 10^3/uL (0.1-1.4); ABSOLUTE NEUT (AUTO) 4.4 10^3/uL (1.7-8.2); BASOPHILS % (AUTO) 0.1 % (0-2); EOSINOPHILS % (AUTO) 1.2 % (0-6); HEMATOCRIT 32.9 % (36.0-47.0); HEMOGLOBIN 11.1 g/dL (12.0-15.5); LYMPHOCYTES % (AUTO) 31.1 % (13-45); MEAN CORPUSCULAR HEMOGLOBIN 30.6 pg (27.0-33.4); MEAN CORPUSCULAR HGB CONC 33.8 g/dL (32.0-36.0); MEAN CORPUSCULAR VOLUME 91 fl (80-97); MONOCYTES % (AUTO) 7.9 % (3-13); PLATELET COUNT 194 10^3/uL (150-450); RED BLOOD COUNT 3.63 10^6/uL (3.72-5.28); RED CELL DISTRIBUTION WIDTH 14.3 % (11.5-14.0); SEGMENTED NEUTROPHILS % (AUTO) 59.7 % (42-78); TOTAL CELLS COUNTED % (AUTO) 100 %; WHITE BLOOD COUNT 7.3 10^3/uL (4.0-10.5)
[2019-11-13 22:58] LABS: ANION GAP 12 (5-19); BLOOD UREA NITROGEN 15 mg/dL (7-20); CALCIUM 9.8 mg/dL (8.4-10.2); CARBON DIOXIDE 26 mmol/L (22-30); CHLORIDE 100 mmol/L (98-107); GLUCOSE 117 mg/dL (75-110); POTASSIUM 3.9 mmol/L (3.6-5.0)
[2019-11-14] MEDS ORDERED: ONDANSETRON ODT 4 MG TAB (6 TAB/ER DISP) PO PRN (02:12)
[2019-11-14] MEDS ORDERED: HYDROCODONE/ACETAMINOPHEN 5-325 MG (6 TAB/ER DISP) PO PRN (02:12)
--- NOTE | 2019-11-14 02:13 | ER Document Report ---
ED GI/ - General Chief Complaint: Vaginal Bleeding Stated Complaint: VAGINAL BLEEDING,NAUSEA,VOMITING Time Seen by Provider: 11/13/19 21:49 Primary Care Provider: [facility] [Provider Group] - Follow up in 3-5 days Notes: Patient is a 29-year-old female, G4, P3 that comes emergency department for chief complaint of abdominal cramping and vaginal spotting. Patient states that she was hoping to get some answers because of uncertain previous ultrasound and poorly trending hCG testing here. She denies significant change from previously when I saw her. She denies fever, vomiting, dizziness, passing out, severe pain, heavy bleeding. TRAVEL OUTSIDE OF THE [place] IN LAST 30 DAYS: No - Related Data Allergies/Adverse Reactions: No Known Allergies Allergy (Verified 11/11/19 17:05) Past Medical History - General Information source: Patient - Social History Smoking Status: Never Smoker Frequency of alcohol use: None Drug Abuse: None Lives with: Family Family History: Reviewed & Not Pertinent Patient has suicidal ideation: No Patient has homicidal ideation: No Renal/ Medical History: Denies: Hx Peritoneal Dialysis - Immunizations Immunizations up to date: Yes Hx Diphtheria, Pertussis, Tetanus Vaccination: Yes Review of Systems - Review of Systems Constitutional: No symptoms reported EENT: No symptoms reported Cardiovascular: No symptoms reported Respiratory: No symptoms reported Gastrointestinal: No symptoms reported Genitourinary: No symptoms reported Female Genitourinary: See HPI Musculoskeletal: No symptoms reported Skin: No symptoms reported Hematologic/Lymphatic: No symptoms reported Neurological/Psychological: No symptoms reported Physical Exam - Vital signs Vitals: Temp Pulse Resp BP Pulse Ox 98.7 F 93 16 123/68 96 11/13/19 20:36 11/13/19 20:36 11/13/19 20:36 11/13/19 20:36 11/13/19 20:36 - Notes Notes: GENERAL: Alert, interacts well. No acute distress. HEAD: Normocephalic, atraumatic. EYES: Pupils equal, round, and reactive to light. Extraocular movements intact. ENT: Oral mucosa moist, tongue midline. Oropharynx unremarkable. Airway patent. LUNGS: Clear to auscultation bilaterally, no wheezes, rales, or rhonchi. No respiratory distress. HEART: Regular rate and rhythm. No murmur ABDOMEN: Soft, non-tender. Non-distended. EXTREMITIES: Moves all 4 extremities spontaneously. No edema, normal radial and dorsalis pedis pulses bilaterally. No cyanosis. BACK: no cervical, thoracic, lumbar midline tenderness. No saddle anesthesia, normal distal neurovascular exam. Moves all extremities in full range of motion. NEUROLOGICAL: Alert and oriented x3. Normal speech. Cranial nerves II through XII grossly intact. PSYCH: Normal affect, normal mood. SKIN: Warm, dry, normal turgor. No rashes or lesions noted. Course - Re-evaluation Re-evalutation: Patient is alert and well-appearing. She is not bleeding or cramping at the time of my evaluation. Soft benign abdomen. Unremarkable vital signs. RhoGam/blood type has been checked and is O+, not indicated. CBC does not show concerning anemia or concerning findings otherwise. hCG is downtrending consistent with miscarriage like previous ultrasound showed. I discussed with patient. She states she has had one miscarriage before and she is familiar with this, she was provided with pain medication, she states she will call [facility] [employer] SURVEYOR for close follow-up, I did discuss expectations, follow-up, and return precautions at length. Patient states appreciation and agreement. - Vital Signs Vital signs: Temp Pulse Resp BP Pulse Ox 98.4 F 77 17 116/64 100 11/14/19 02:55 11/14/19 02:55 11/14/19 02:55 11/14/19 02:55 11/14/19 02:55 - Laboratory Result Diagrams: 11/13/19 22:00 11/13/19 22:00 Laboratory results interpreted by me: 11/13/19 11/13/19 22:00 22:00 RBC 3.63 L Hgb 11.1 L Hct 32.9 L RDW 14.3 H Glucose 117 H Beta HCG, Quant 173.23 H Discharge - Discharge Clinical Impression: Vaginal bleeding affecting early Condition: Stable Disposition: HOME, SELF-CARE Additional Instructions: Your has stopped developing and you are in the process of miscarrying. Take pain medication if needed, take nausea medication if needed, drink plenty of fluids. See additional instructions below. Return if you worsen including severe bleeding with dizziness or passing out, severe pain, fever, or any other concerning or worsening symptoms. At this time, it appears that the fetus has stopped growing. A miscarriage occurs when the fetus is abnormal. There is no medicine or treatment to prevent it. If bleeding is not severe, and if your pain can be controlled with medicine, you could complete the miscarriage at home. If that's not practical, or if the miscarriage doesn't progress spontaneously, we will arrange for a D&C procedure. You should rest in bed. Do not douche or have sex for at least a week, or until OK'd by the doctor. If you believe you've passed the fetus, collect it in a zip- lock plastic bag. Be sure to follow up with your doctor. Call the doctor or return for re- examination if there is an increase in bleeding or cramping, extreme weakness, fainting, fever, or passage of tissue. Prescriptions: Oxycodone HCl/Acetaminophen [Percocet 5-325 mg Tablet] 1 - 2 tab PO Q6H PRN #12 tablet PRN Reason: Ondansetron [Zofran Odt 4 mg Tablet] 1 - 2 tab PO Q4H PRN #15 tab.rapdis PRN Reason: For Nausea/Vomiting Referrals: [facility] [Provider Group] - Follow up in 3-5 days
[2019-11-14 02:57] VITALS: BP 116/64
== END 2019-11-14 02:55 | disposition home or self-care (01) ==
LOC: ER 20:13
DX: O20.9 Hemorrhage in early pregnancy, unspecified (principal); O26.899 Other specified pregnancy related conditions, unspecified trimester; R10.30 Lower abdominal pain, unspecified; Z3A.00 Weeks of gestation of pregnancy not specified; Z87.59 Personal history of other complications of pregnancy, childbirth and the puerperium
CPT/HCPCS: 36415; 80048; 84702; 85025; 99284